=== PATIENT | male | born 1950 | race Caucasian/White ===

== ENCOUNTER 2024-05-19 18:32 | Emergency (ER) | payer MEDICARE ==
[~2024-05-19] VITALS: Ht 175.3 cm; Wt 109.0 kg
[2024-05-19 20:21] VITALS: BP 153/94
== END 2024-05-19 20:28 | disposition home or self-care (01) ==
LOC: ED 18:32
DX: S61.012A Laceration without foreign body of left thumb without damage to nail, initial encounter (principal); W26.0XXA Contact with knife, initial encounter; Y92.009 Unspecified place in unspecified non-institutional (private) residence as the place of occurrence of the external cause